=== PATIENT | male | born 1945 | race Caucasian/White ===

== ENCOUNTER → 2024-12-10 12:52 | Outpatient (REF) | payer MEDICARE, SELFPAY ==
[2024-12-10 13:29] LABS: Hematocrit 45.3 % (39.0-52.0); Hemoglobin 15.4 g/dL (13.0-18.0); Mean Corp Hgb Conc. 34.0 g/dL (33.0-37.0); Mean Corpuscular Volume 92.4 fL (80.0-94.0); Nucleated Red Blood Cells % 0 % (-); Platelet Count 164 10^3/uL (130-400); Red Cell Dist. Width 12.5 % (11.5-14.5)
[2024-12-10 13:56] LABS: ALT (SGPT) 16 U/L (0-50); AST (SGOT) 21 U/L (17-59); Albumin 4.4 g/dl (3.5-5.0); Alkaline Phosphatase 55 U/L (38-126); Blood Urea Nitrogen 21 mg/dl (9-20); Calcium 9.4 mg/dl (8.4-10.2); Carbon Dioxide 28 mmol/L (22-30); Chloride 103 mmol/L (98-107); Glucose 145 mg/dl (70-99); Potassium 4.6 mmol/L (3.5-5.1); Sodium 138 mmol/L (135-145); Total Protein 6.9 g/dl (6.3-8.2); eGFR > 60.00
[2024-12-10 14:25] LABS: PSA, Total - Screen 0.94 ng/ml (0.0-4.0)
[2024-12-11 14:57] LABS: Glycohemoglobin (HgbA1c) 5.7 % (4.0-5.6)
== END ==
LOC: REG 12:52
PROVIDERS: ATTENDING PHYSICIAN Nurse Practitioner Family
DX: I10 Essential (primary) hypertension (principal); E78.2 Mixed hyperlipidemia; Z12.5 Encounter for screening for malignant neoplasm of prostate; K57.30 Diverticulosis of large intestine without perforation or abscess without bleeding; H01.009 Unspecified blepharitis unspecified eye, unspecified eyelid; E66.3 Overweight; R73.01 Impaired fasting glucose
CPT/HCPCS: 36415; 80053; 83036; 84443; 85025; 93005; G0103